=== PATIENT | male | born 1985 | race Caucasian/White ===

== ENCOUNTER 2018-11-01 10:01 | Emergency (ER) | payer OTHER, SELFPAY ==
[2018-11-01 10:02] VITALS: BP 139/100; PULSE 85; RESP 16; TEMP 37.1; O2SAT 100; BMI 29.4
--- NOTE | 2018-11-01 10:17 | ED.VIS.GEN ---
History of Present Illness <Karolina Waggoner - Last Filed: 11/01/18 16:09> Detail of Chief Complaint: Nader is a 32-year-old male who was lifting 200 pound boulders yesterday Informant: Patient Onset: Yesterday Context: Onset with activity, Gradual Onset Timing: Continuous Current Severity: Moderate Maximum Severity: Moderate Worsened by: Movement Relieved by: Remaining still Associated Symptoms: Denies Narrative: Nadre is a 32-year-old male who lifts 100-200 pound boulders and performs leg squats for exercise. He was doing this yesterday when he felt a twinge of pain in his low back. He gradually has worsened. When he woke today could not get out of bed to the pain. He arrived via EMS. Has loss of bowel or bladder function or paresthesia or weakness of extremities. Prior similar symptoms: No Recent Illness/Hospitalization: No <Dulce Damon - Last Filed: 11/01/18 17:14> Chief Complaint: Back Past Medical History <WaggonerKarolina - Last Filed: 11/01/18 16:09> Smoking Status: Current every day smoker <Dulce Damon - Last Filed: 11/01/18 17:14> - Allergies and Home Meds Allergies/Adverse Reactions: Allergies No Known Allergies Allergy (Verified 11/01/18 10:05) Primary Care Physician: Alexis Gabriel DO [STAFF PHYSICIAN] - Care Physician,No Primary [Primary Care Provider] - Review of Systems General: Denies: Chills, Fever Eyes: Denies: Visual changes - left, Blurred vision - left Cardiovascular: Denies: Chest pain, Palpitations Respiratory: Denies: Dyspnea, Cough Gastrointestinal: Denies: Abdominal pain, Nausea, Vomiting Musculoskeletal: Reports: Back pain. Denies: Neck pain, Extremity Pain Neurological: Denies: Weakness, Parasthesia <Dulce Damon - Last Filed: 11/01/18 17:14> Physical Exam Vital Signs/Narrative: Vital Signs Temp Pulse Resp BP Pulse Ox 11/01/18 10:02 98.7 F 85 16 139/100 H 100 Inital Vital Signs reviewed: Yes General: Well nourished, Well developed Head: Normocephalic, Atraumatic Eyes: Perrl, EOMI ENT: Moist mucous membranes, No rhinorrhea Cardiovascular: Regular rate, Regular rhythm Respiratory: No distress, CTA bilaterally Abdomen: Soft, Nontender, Nondistended Back: Normal Inspection, - - Diffuse paralumbar tenderness without specific midline tenderness.. Negative for: CVA tenderness Extremities: Negative for: Nontender, No edema Skin: Normal color, No rash Neurological: Alert, Oriented x3, Normal Sensation, - - DTRs were 2+ bilaterally to lower extremities. Dorsiflexion of great toe was equal bilaterally. Straight leg raise was negative bilaterally. Drawn peripheral pulses were present.. Negative for: Parasthesia, Weakness Psychological: Normal affect, Normal Mood <Dulce Damon - Last Filed: 11/01/18 17:14> Diagnostic/Tx/Re-eval - Medical Decision Making Patient seen with nurse practitioner. Patient was lifting heavy boulders yesterday. He felt a slight pulling sensation in his left lower back. When he woke this morning he had increased pain and difficulty getting out of bed. He states he initially had some paresthesias in his left foot but that is simply resolved. Patient lying supine in no acute distress. He has reproducible tenderness in the left lower lumbar paraspinal muscles. Straight leg raise bilaterally is negative. Patient be treated with muscle relaxers and anti-inflammatories. He is to follow up with his primary care physician next week. <Karolina Waggoner - Last Filed: 11/01/18 16:09> - Medical Decision Making His exam is consistent with a lumbar strain after lifting heavy object. He had no neurological deficit on exam. His pain is worse with change in position. He was given an injection of Toradol and Norflex and prescribed Naprosyn and Flexeril for home. He was instructed to use ice and heat. He was instructed return for loss of bowel or bladder function or leg weakness. He voiced understanding of instructions and questions were answered. He was discharged in stable condition. <Dulce Damon - Last Filed: 11/01/18 17:14> ED Disposition <Karolina Waggoner - Last Filed: 11/01/18 16:09> <Dulce Damon - Last Filed: 11/01/18 17:14> - Plan for ED Patient: Disposition: Home or Assisted Living Instructions: Back Sprain/Strain Prescriptions: cycloBENZAPRine HCl [Flexeril] 10 mg PO TID PRN PRN #15 tab PRN Reason: Pain Prescription Printed Naproxen [Naprosyn] 500 mg PO BID PRN #20 tab Prescription Printed Referrals: Care Physician,No Primary [Primary Care Provider] - Alexis Gabriel DO [STAFF PHYSICIAN] -
[2018-11-01] MEDS: Orphenadrine 60 MG/2 ML Ampul IM (10:45)
[2018-11-01] MEDS: Ketorolac 30 MG/ML Syringe IM (10:45)
== END 2018-11-01 11:22 | disposition home or self-care (01) ==
PROVIDERS: Emergency Provider Nurse Practitioner
DX: S39.012A Strain of muscle, fascia and tendon of lower back, initial encounter (principal); X50.0XXA Overexertion from strenuous movement or load, initial encounter; Y93.89 Activity, other specified; Y92.9 Unspecified place or not applicable; F17.200 Nicotine dependence, unspecified, uncomplicated
CPT/HCPCS: 96372; 99282

== ENCOUNTER → 2018-12-29 09:49 | Outpatient (CLI) | payer OTHER, SELFPAY ==
--- NOTE | 2018-12-29 09:51 | VDLE_ITS ---
Reason For Study: symptomatic varicose vein RIGHT LEFT CFV is compressible, spontaneous, phasic, CFV is compressible, spontaneous, phasic, competent and demonstrates normal competent, and demonstrates normal augmentation. augmentation. FV is compressible, spontaneous, phasic, FV is compressible, spontaneous, phasic, competent and demonstrates normal competent and demonstrates normal augmentation. augmentation. POP V is compressible, spontaneous, phasic, POP V is compressible, spontaneous, phasic, competent and demonstrates normal competent and demonstrates normal augmentation. augmentation. T/P Trunk is compressible. T/P Trunk is compressible. PTV is compressible. PTV is compressible. RT PerV is compressible. LT PerV is compressible. SFJ is competent and measures 0.68 x 0.58 cm. SFJ is competent and measures 0.88 x 1.0 cm. GSV proximal thigh measures 0.48 x 0.52 cm. GSV proximal thigh measures 0.60 x 0.87 cm. GSV at knee measures 0.46 x 0.53 cm. GSV at knee measures 0.78 x 1.02 cm. GSV is competent throughout. GSV above knee is INCOMPETENT for greater SSV proximal calf is competent and measures than 0.5 seconds. 0.35 x 0.43 cm. GSV below knee is INCOMPETENT for greater Procedure than 0.5 seconds. Exam performed in department. SSV at junction is competent and measures The exam was diagnostic. 0.55 x 0.54 cm. A preliminary report was called and/or faxed LEFT medial calf vorcosities are to DR. Garner @ 11:45 am @ [phone]. compressible. Interpretation Summary Deep veins of the lower extremities are bilaterally patent and compressible segmentally. There is no evidence of deep vein thrombosis on either side. Valvular competence appears intact within the proximal deep venous systems bilaterally. The great saphenous veins appear bilaterally patent and compressible segmentally. Sapheno-femoral junctions are bilaterally competent . The right great saphenous vein appears segmentally competent. The left great saphenous vein appears segmentally incompetent. Small saphenous veins are patent and competent bilaterally. Superficial varicosities in the left medial calf appear patent and compressible. Ordering Physician: Ming Garner Referring Physician: Ming Garner Performed By: Elena Hayden, LAWRENCE, RVT
== END ==
LOC: CVS 09:50
PROVIDERS: Family Provider Family Medicine; PCP Family Medicine; Referring Provider Family Medicine; Visit Provider Family Medicine
DX: I83.892 Varicose veins of left lower extremity with other complications (principal)
CPT/HCPCS: 93970

== ENCOUNTER → 2020-10-04 16:20 | Outpatient (CLI) | payer OTHER, SELFPAY ==
[2020-10-04 18:44] LABS: Thyroid Stim Hormone (TSH) 1.55 uIU/mL (0.358-3.74)
== END ==
PROVIDERS: PCP Family Medicine; Visit Provider Family Medicine
DX: F41.9 Anxiety disorder, unspecified (principal)
CPT/HCPCS: 36415; 84443

== ENCOUNTER → 2021-04-04 11:54 | Outpatient (CLI) | payer OTHER, SELFPAY ==
[2021-04-04 14:57] LABS: Absolute Lymphocyte Count 2.23 X10^3/uL (0.83-4.51); Absolute Neutrophil Count 2.4 X10^3/uL (2.0-7.7); Basophil# 0.04 X10^3/uL; Basophil% 0.7 % (0-1); Eosinophil# 0.29 X10^3/uL; Eosinophils% 5.3 % (0-5); Hematocrit 47.4 % (40-54); Hemoglobin 16.2 g/dL (13.0-16.5); Lymphocyte # 2.23 X10^3/ul (0.83-4.51); Lymphocyte % 40.7 % (19-41); Mean Corp Hgb Conc 34.2 g/dL (32-36); Mean Corpuscular Hgb 30.6 pg (27.0-32.0); Mean Corpuscular Volume 89.6 fL (80-94); Mean Platelet Vol. 10.7 fl (6.2-12.0); Monocyte# 0.54 X10^3/uL; Monocyte% 9.9 % (0-10); NRBC Flagged by Analyzer 0 % (0-5); Neutrophil # 2.36 X10^3/uL (2.7-7.7); Platelet Count 214 K/mm3 (150-450); RBC Distribution Width CV 12.6 % (11.6-14.6); RBC Distribution Width SD 41.6 fl (35.1-43.9); Red Blood Count 5.29 M/mm3 (4.6-6.2); White Blood Count 5.5 K/mm3 (4.4-11.0)
[2021-04-04 15:11] LABS: Vitamin B12 694 pg/mL (211-911); Vitamin D,25 Hydroxy 25.9 ng/mL
[2021-04-04 15:28] LABS: ALB/GLOB Ratio 1.2 RATIO (0.9-2.4); AST(SGOT) 16 U/L (15-37); Alanine Aminotransfer ALT/SGPT 37 U/L (16-61); Albumin, Serum 3.9 g/dL (3.2-5.0); Alkaline Phosphatase 44 U/L (45-117); Anion Gap 8 (5-15); BUN 15 mg/dL (7-18); BUN/Creat Ratio 14.6 RATIO (10-20); Calcium,Total 8.7 mg/dL (8.5-10.1); Chloride 107 mmol/L (98-107); Creatinine, Serum 1.03 mg/dL (0.70-1.30); EST Glomerular Filtration Rate 88 mL/min (>60); Est Glom Filt Rate - Afr Amer 107 mL/min (>60); Globulin 3.2 g/dL (2.2-4.2); Glucose 98 mg/dL (74-106); Potassium 3.9 mmol/L (3.5-5.1); Protein, Total 7.1 g/dL (6.4-8.2); Sodium Level 141 mmol/L (136-145); T4 Free Direct 1.07 ng/dL (0.76-1.46); Thyroid Stim Hormone (TSH) 1.41 uIU/mL (0.358-3.74)
[2021-04-08 12:08] LABS: Testosterone, Free 24.97 ng/dL (5.00-21.00)
[2021-04-08 12:12] LABS: Testosterone, % Free 2.58 % (1.50-4.20); Testosterone, Total 968 ng/dL (264-916)
== END ==
LOC: MTLAB 11:56
PROVIDERS: PCP Family Medicine; Referring Provider Family Medicine; Visit Provider Family Medicine
DX: R53.83 Other fatigue (principal)
CPT/HCPCS: 36415; 80053; 82306; 82607; 84402; 84403; 84439; 84443; 85025

== ENCOUNTER 2021-05-05 14:54 | Outpatient (CLI) | payer OTHER, SELFPAY ==
[2021-05-09 08:20] LABS: Testosterone, % Free 3.83 % (1.50-4.20); Testosterone, Total 739 ng/dL (264-916)
== END 2021-05-05 23:59 | disposition home or self-care (01) ==
LOC: MFPLAB 14:57
PROVIDERS: PCP Family Medicine; Referring Provider Family Medicine; Visit Provider Family Medicine
DX: E34.9 Endocrine disorder, unspecified (principal)
CPT/HCPCS: 36415; 84402; 84403

== ENCOUNTER 2021-06-07 12:33 | Outpatient (CLI) | payer OTHER, SELFPAY ==
[2021-06-07 15:13] LABS: Absolute Lymphocyte Count 2.66 X10^3/uL (0.83-4.51); Absolute Neutrophil Count 4.7 X10^3/uL (2.0-7.7); Basophil# 0.05 X10^3/uL; Basophil% 0.6 % (0-1); Eosinophil# 0.14 X10^3/uL; Eosinophils% 1.7 % (0-5); Hematocrit 45.8 % (40-54); Hemoglobin 15.5 g/dL (13.0-16.5); Lymphocyte # 2.66 X10^3/ul (0.83-4.51); Lymphocyte % 32.2 % (19-41); Mean Corp Hgb Conc 33.8 g/dL (32-36); Mean Corpuscular Hgb 30.5 pg (27.0-32.0); Mean Corpuscular Volume 90.2 fL (80-94); Mean Platelet Vol. 10.8 fl (6.2-12.0); Monocyte# 0.72 X10^3/uL; Monocyte% 8.7 % (0-10); NRBC Flagged by Analyzer 0 % (0-5); Neutrophil # 4.66 X10^3/uL (2.7-7.7); Neutrophil % 56.6 % (47-70); Platelet Count 204 K/mm3 (150-450); RBC Distribution Width CV 12.9 % (11.6-14.6); RBC Distribution Width SD 42.7 fl (35.1-43.9); Red Blood Count 5.08 M/mm3 (4.6-6.2); White Blood Count 8.3 K/mm3 (4.4-11.0)
[2021-06-12 12:09] LABS: Testosterone, Free 16.88 ng/dL (5.00-21.00)
[2021-06-12 13:29] LABS: Testosterone, % Free 2.12 % (1.50-4.20); Testosterone, Total 796 ng/dL (264-916)
== END 2021-06-07 23:59 | disposition home or self-care (01) ==
LOC: MTLAB 12:34
PROVIDERS: PCP Family Medicine; Referring Provider Family Medicine; Visit Provider Family Medicine
DX: E34.9 Endocrine disorder, unspecified (principal)
CPT/HCPCS: 36415; 84402; 84403; 85025

== ENCOUNTER 2021-10-15 15:13 | Emergency (ER) | payer OTHER, SELFPAY ==
[2021-10-15 15:16] VITALS: BP 143/82; PULSE 117; RESP 16; TEMP 36.4; BMI 32.5
--- NOTE | 2021-10-15 15:53 | ED.RN ---
PRESSURE DRESSING LOOSENED . BLEEDING CONTROLLED AT THIS TIME. DR MURPHY
--- NOTE | 2021-10-15 15:59 | EX.ED.VISEXT ---
HPI History of Present Illness HPI Narrative: Left hand laceration after being cut by a chisel Chief Complaint: Trauma Informant: patient Occured/Mechanism Mechanism/Context: Yes injury Onset/Context/Timing Onset: Today Context: Sudden Onset Timing: Continuous Current Severity: Mild Maximum Severity: Mild Associated Symptoms Associated Symptoms: Negative for Parasthesia, Weakness or Loss of Funtion Narrative Narrative: 55-year-old male [id number]. He was using a chisel because plastic and slipped causing laceration worsening left radial side of his hand. Last tetanus shot was 12 years ago. Denies other injuries. Tetanus Immunization: >10 years Prior similar symptoms: No Recent Illness/Hospitalization: No ROS ROS ED ROS Narrative No recent illness. Review of Systems ROS Unobtainable: Denies due to encephalopathy Constitutional Constitutional ED: Denies chills or fever(s) Eyes Eyes: Denies blurry vision ENT ENT ED: Denies ear pain Cardiovascular Cardiovascular: Denies chest pain Respiratory/Chest Respiratory/Chest: Denies cough Gastrointestinal Gastrointestinal: Denies abdominal pain Genitourinary Genitourinary ED: Denies dysuria Musculoskeletal Musculoskeletal: Denies arthralgias Integumentary Denies abscess Neurologic Neurologic: Denies headache(s) Psychiatric Psychiatric: Denies anxiety Endocrine Endocrinology: Denies polydipsia Hematologic/Lymphatic Hematologic/Lymphatic: Denies easy bleeding Allergic/Immunologic Allergic/Immunologic ED: Denies mouth swelling PFSH PFSH Medical History no medical history no medical history Home Medications cephalexin 500 mg capsule 500 mg PO TID 5 days #15 caps 10/15/21 [Rx Last Taken Unknown] Allergy/AdvReac Type Severity Reaction Status Date / Time No Known Allergies Allergy Verified 10/15/21 15:20 Family History unable to obtain Surgical History no surgical history Social History Smoking Status: Current every day smoker tobacco type: cigarettes EXAM Physical Exam Narrative Exam Narrative: Leuw-mbot-lzy male no acute distress vital signs stable afebrile. HEENT exam unremarkable. Lungs are clear. Heart regular rhythm. Abdomen soft nontender 4 extremities. Neurovascular intact left hand currently has a large dressing on it although that and evaluated prior to suture repair. Dorsum left hand has about a 3 inch laceration involving the skin and subcu tissue and muscle belly between his thumb and index finger. There is pulsatile bleeding of 2 small materials. We have a controlled that with a blood pressure cuff. Area. He has full flexion-extension all digits of the hand and normal touch sensation. There is no foreign body. Const Vital Signs: 10/15/21 15:16 10/15/21 15:36 Temperature 97.6 F L Temperature Source Temporal Pulse Rate 117 H Respiratory Rate 16 Respiratory Effort Normal Respiratory Depth Normal Respiratory Pattern Normal Blood Pressure 143/82 H Blood Pressure Mean 102 Oxygen Delivery Method Room Air Room Air Positive well nourished and well developed; Negative for obese, cachectic, contractures or unkempt General Appearance ED: well developed; Negative for unkempt, cachectic or contractures Nutritional Appearance: Negative for cachectic or obese HEENT Reports moist mucous membranes normocephalic and atraumatic; Negative for trauma Eyes PERRL and EOMs intact bilaterally Neck full ROM and no lymphadenopathy General: Negative for tenderness Resp normal respiratory effort Auscultation: Negative for rales or rhonchi Cardio regular rhythm, S1 normal heart sound and S2 normal heart sound; Negative for regular rate Rate: tachycardic GI non-tender, non-distended and no masses Auscultation: normoactive bowel sounds Palpation: soft Extremity normal to inspection and full ROM Extremity Narrative: Negative exam for lacerations to left hand on the radial instability . General Extremety ED: Negative for deformity or edema General Extremity: Negative for deformity or edema Neuro oriented x3 Sensorium / Orientation: alert, oriented to person, oriented to place and oriented to time; Negative for orientation impaired, confused, lethargic or stuporous Motor Exam: strength 5/5 throughout Psych mental status grossly normal and thought process normal Appearance: Negative for unkempt Attitude: No agitated Mood & Affect: Negative for anxious Skin Skin Narrative: Laceration dorsum left hand between the thumb and index finger. 3 inch laceration involving the skin, subcu tissue muscle belly with pulsatile to small arterial bleeders. No foreign body. No infection. Lesions: no lesions Rashes: no rashes Trauma: laceration MDM MDM MDM Narrative Medical decision making narrative: 35-year-old with left hand laceration. Tetanus will be updated. He will need this explored and repaired. Procedures Lacerations Dorsum left hand laceration: Length: 3 in Depth: Muscle Shape: Linear Prep: [place]-Clens Laceration repair: Irrigated, Lidocaine, Local, Skin sutures and Wound explored Number of Sutures/[place]: 8 Suture Information: Simple and 4-0 Comment: Dorsum left hand laceration between the thumb and index finger on the dorsal hand. Involves the skin, subcu tissue and muscle belly. There were 2 small arterial bleeders. Blood pressure cuff was able to get bleeding under control. Area was locally anesthetized with lidocaine. Cleaned with Shur-Clens. Washed and irrigated with saline. Explored. Closed using 8 simple interrupted 4-0 Ethilon sutures. Proper hemostasis wound closure is obtained. The hand was elevated and had a pressure dressing applied I reevaluated. At 5:20 PM and he clinically looks well. He has neurovascularly intact. There is no significant swelling or developing hematoma. Patient be discharged home. Wound care instructions. Keflex 3 times a day for 5 days to prevent infection. His tetanus was updated. Discharge Plan Triage Chief Complaint: Trauma ED Provider: Nilson Bonilla Dx/Rx/DC Orders Clinical Impression: Hand laceration Instructions: ED Laceration, Hand: All Closures Prescriptions: New cephalexin 500 mg capsule 500 mg PO TID 5 Days Qty: 15 0RF Primary Care Provider: Ming Garner Referrals: Ming Garner MD [Primary Care Provider] - 10-14 Days suture removal Activity Restrictions/Additional Instructions: If our dressing stays dry and clean leave it on for 4 to 5 days and you can take it off and start cleaning this gently daily. Ice and elevate to decrease pain and swelling and prevent recurrent bleeding. Tylenol and Motrin for pain. Due to it being a deep laceration of the muscle and placing on antibiotic Keflex 1 pill 3 times a day for 5 days try to prevent any infection. Watch for signs of infection such as significant swelling, worsening pain, fever, red streaks or pus is seen return. If you get significant worsening swelling as severe pain return to have this reevaluated. Stitches out in no sooner than 10 and I would do 14 days. Disposition Disposition: Home, Self Care
[2021-10-15] MEDS: Diphth,Pertuss(Acell),Tet Vac 0.5 ML Vial IM (16:09)
[2021-10-15] MEDS: Lidocaine 1% (20 ml mdv) 20 ML Vial 10 ML INFILT (16:34)
--- NOTE | 2021-10-15 16:36 | ED.RN ---
PT WITH ARTERIAL BLEED TO LEFT HAND. DR. SORIANO AT BEDSIDE. THIS RN AND ROGER RN HOLDING PRESSURE TO ARM. BLOOD PRESSURE CUFF INFLATED TO UPPER ARM TO CONTROL BLEEDING. DR. SORIANO AT BEDSIDE FOR SUTURE. PRESSURE DRESSING APPLIED WITH ANTONIO WRAP. CAP- REFILL DELAYED. DR. SORIANO AWARE.
[2021-10-15 17:38] VITALS: PULSE 93; RESP 18; O2SAT 96
== END 2021-10-15 17:39 | disposition home or self-care (01) ==
PROVIDERS: Emergency Provider Emergency Medicine; PCP Family Medicine; Visit Provider Emergency Medicine
DX: S61.412A Laceration without foreign body of left hand, initial encounter (principal); F17.210 Nicotine dependence, cigarettes, uncomplicated; Z23 Encounter for immunization; X58.XXXA Exposure to other specified factors, initial encounter
CPT/HCPCS: 12002; 90471; 90715; 99285